=== PATIENT | female | born 1930 | race Asian ===

== ENCOUNTER 2019-01-15 10:54 | Inpatient (IN) | payer MEDICARE, BC ==
[~2019-01-15] VITALS: Ht 162.6 cm; Wt 52.2 kg
[~2019-01-15 10:54] MED LIST: CYCLOBENZAPRINE10 MG ORAL; NORCO 5-325 TA1 EACH ORAL
[2019-01-15] MEDS ORDERED: NKM (11:11)
[2019-01-15 11:46] VITALS: BP 167/63
--- NOTE | 2019-01-15 11:50 | Diagnostic Imaging Report ---
Indication: Shortness of breath Technique: XRAY Chest 1v Comparison: 04/23/2014 Findings: Stable cardiomegaly. Mediastinal contours are sharp. Atherosclerotic calcifications again noted in the aorta. Subtle nonspecific increased interstitial markings again noted at the bases, chronic. No focal airspace consolidation, pleural effusion or pneumothorax. Bones are demineralized. There are degenerative changes of the spine. There is a healed right clavicle fracture. Impression: No radiographic evidence of acute cardiopulmonary disease. Chronic findings as detailed above.
--- NOTE | 2019-01-15 12:08 | Diagnostic Imaging Report ---
Indication: Dizziness Technique: Continuous helical CT scanning of the head was performed utilizing automated exposure control without intravenous contrast material. Axial and coronal reconstructions were obtained. Comparison: None CT dose: Total DLP 1362.01 mGycm; CTDI vol 70.38 mGy Findings: There is no acute intracranial hemorrhage, mass effect or cortical edema. There is no shift of the midline structures. Apparent punctate focus of low-attenuation in the left cerebellum (series 3 image #7) most likely represents artifact from adjacent dense bone. The ventricles, cisterns and sulci are prominent consistent with atrophy. Periventricular hypoattenuation is seen, a nonspecific finding. Visualized mastoid air cells and paranasal sinuses are unremarkable. No skull fracture. IMPRESSION: No evidence of acute intracranial hemorrhage, mass effect or shift of midline structures. Apparent small focus of low-attenuation in the left cerebellum (image #7) may be artifactual and related to streak/volume averaging effect. If there is concern for ischemia then recommend further evaluation with MRI. Atrophy and nonspecific periventricular hypoattenuation suggestive of chronic ischemic microvascular changes. The CT scanner at [facility] is accredited by the [employer] and the scans are performed using protocols designed to limit radiation exposure to as low as reasonably achievable to attain images of sufficient resolution adequate for diagnostic evaluation.
[2019-01-15 12:28] LABS: HEMATOCRIT 42.7 % (37.0-47.0); HEMOGLOBIN 13.9 G/DL (12.0-16.0); MEAN CORPUSCULAR VOLUME 95 FL (80-99); PLATELET COUNT 206 K/UL (150-450); RED CELL DISTRIBUTION WIDTH 12.5 % (11.6-14.8); WHITE BLOOD COUNT 3.3 K/UL (4.8-10.8)
[2019-01-15 12:29] LABS: APPEARANCE,URINE CLEAR; BILIRUBIN, URINE NEGATIVE (NEGATIVE); COLOR,URINE PALE YELLOW; GLUCOSE, URINE (UA) NEGATIVE (NEGATIVE); KETONES,URINE NEGATIVE (NEGATIVE); LEUKOCYTE ESTERASE ,URINE 2+ (NEGATIVE); NITRITE,URINE NEGATIVE (NEGATIVE); PH,URINE 7 (4.5-8.0); PROTEIN,URINE NEGATIVE (NEGATIVE); UROBILINOGEN,URINE NORMAL MG/DL (0.0-1.0)
[2019-01-15 12:37] LABS: ANION GAP 8 mmol/L (5-15); BLOOD UREA NITROGEN 9 mg/dL (7-18); CALCIUM 9.5 MG/DL (8.5-10.1); CARBON DIOXIDE 32 MMOL/L (21-32); CHLORIDE 104 MMOL/L (98-107); CREATININE 0.5 MG/DL (0.55-1.30); POTASSIUM 4.2 MMOL/L (3.5-5.1); SODIUM 143 MMOL/L (136-145)
[2019-01-15 12:50] LABS: ALANINE AMINOTRANSFERASE 19 U/L (12-78); ALBUMIN 3.9 G/DL (3.4-5.0); ALBUMIN/GLOBULIN RATIO 1.1 (1.0-2.7); ALKALINE PHOSPHATASE 100 U/L (46-116); ASPARTATE AMINO TRANSFERASE 22 U/L (15-37); BILIRUBIN,TOTAL 0.8 MG/DL (0.2-1.0); CKMB 1.3 NG/ML (0.0-3.6); CREATINE KINASE 101 U/L (26-308)
--- NOTE | 2019-01-15 14:17 | Diagnostic Imaging Report ---
Indication: Vertigo, dizziness Technique: MRI the brain performed utilizing T1 sagittal, T2 axial, T1 FLAIR axial, T2 FLAIR axial, T2*GRE and diffusion axial images without gadolinium. Comparison: Concurrent noncontrast CT of the head Findings: No diffusion abnormalities are seen on diffusion weighted imaging. No signal dropout is noted on gradient echo. The sulci, ventricles and cisterns are prominent consistent with atrophy. Periventricular and supratentorial white matter T2 hyperintensity are seen without mass effect. There is no shift of midline structures. No significant extra-axial collections of fluid or blood are demonstrated. Expected signal flow voids are seen of the vessels of the skull base. Visualized mastoid air cells and paranasal sinuses are unremarkable. No focal bony calvarium or soft tissue lesions are seen. IMPRESSION: No acute intracranial abnormality identified. Specifically no evidence of acute infarct. Atrophy and chronic/senescent changes.
--- NOTE | 2019-01-15 14:55 | Emergency Room Report ---
History of Present Illness General Chief Complaint: Hypertension Source: Patient Present Illness HPI The patient states that she has had intermittent episodes of lightheadedness for the past week and a half. She states the first episode happened about 10 days ago. She states that she is going on the stairs and she fell unstable and grabbed onto the railing. She did not fall. She states that over the past few days she has felt more "dizzy." She is unable to articulate exactly what dizzy means. She doesn't answer about spinning or specifically lightheadedness. She is focused on the word dizzy. She denies chest pain or short of breath. She denies abdominal pain. She denies recent illness. She denies cough or congestion. She denies sore throat or neck pain. She denies headache. She states that she took her blood pressure several times a day the past couple days and noted that it was elevated. She states she's never had an elevated blood pressure in the past. She has no other complaints. Allergies: Coded Allergies: NO KNOWN DRUG ALLERGIES (Unverified Allergy, Unknown, 01/15/19) Patient History Past Medical History: none, see triage record Social History: Denies: smoking, alcohol use, drug use Last Menstrual Period: MENOPAUSE Reviewed Nursing Documentation: PMH: Agreed; PSxH: Agreed Nursing Documentation-PMH Past Medical History: No Stated History Review of Systems All Other Systems: negative except mentioned in HPI Physical Exam Vital Signs Date Time Temp Pulse Resp B/P (MAP) Pulse Ox O2 Delivery O2 Flow Rate FiO2 01/15/19 11:07 98.4 58 16 146/70 94 Room Air Sp02 EP Interpretation: reviewed, normal General Appearance: no apparent distress, alert, GCS 15, non-toxic Head: normocephalic, atraumatic Eyes: bilateral eye normal inspection, bilateral eye PERRL ENT: hearing grossly normal, normal pharynx, no angioedema, normal voice Neck: full range of motion, supple/symm/no masses Respiratory: chest non-tender, lungs clear, normal breath sounds, no respiratory distress, no retraction, no accessory muscle use, speaking full sentences Cardiovascular #1: regular rate, rhythm, no edema Gastrointestinal: normal bowel sounds, non tender, soft, non-distended, no guarding, no rebound Rectal: deferred Musculoskeletal: back normal, gait/station normal, normal range of motion, non- tender Neurologic: alert, oriented x3, responsive, motor strength/tone normal, sensory intact, speech normal Psychiatric: judgement/insight normal, memory normal, mood/affect normal, no suicidal/homicidal ideation Skin: normal color, no rash, warm/dry, well hydrated Medical Decision Making Diagnostic Impression: Primary Impression: Hypertension ER Course This patient's workup was negative. The patient did have elevated blood pressures during her ED stay here. She is very hesitant about taking any blood pressure medications because of her history of low blood pressure. I felt I should start a very low dose of low blood pressure medication for her since her blood pressures have been significantly elevated. She is also educated on diet modification. The patient will like to go home and does not want admission to the hospital. I did not identify any medical condition that would require her admission. She has been under a lot of stress secondary to her dying about one month ago. The patient will monitor her blood pressure and see her primary care physician as soon as possible. I did obtain a CT of her head and an MRI of her brain and there was no abnormalities. Overall, the patient's evaluation was benign. The patient is given close return precautions and follow -up instructions. Laboratory Tests Test 01/15/19 12:05 White Blood Count 3.3 K/UL (4.8-10.8) L Red Blood Count 4.50 M/UL (4.20-5.40) Hemoglobin 13.9 G/DL (12.0-16.0) Hematocrit 42.7 % (37.0-47.0) Mean Corpuscular Volume 95 FL (80-99) Mean Corpuscular Hemoglobin 31.0 PG (27.0-31.0) Mean Corpuscular Hemoglobin Concent 32.7 G/DL (32.0-36.0) Red Cell Distribution Width 12.5 % (11.6-14.8) Platelet Count 206 K/UL (150-450) Mean Platelet Volume 7.6 FL (6.5-10.1) Neutrophils (%) (Auto) % (45.0-75.0) Lymphocytes (%) (Auto) % (20.0-45.0) Monocytes (%) (Auto) % (1.0-10.0) Eosinophils (%) (Auto) % (0.0-3.0) Basophils (%) (Auto) % (0.0-2.0) Differential Total Cells Counted 100 Neutrophils % (Manual) 53 % (45-75) Lymphocytes % (Manual) 37 % (20-45) Monocytes % (Manual) 7 % (1-10) Eosinophils % (Manual) 3 % (0-3) Basophils % (Manual) 0 % (0-2) Band Neutrophils 0 % (0-8) Platelet Estimate Adequate Platelet Morphology Normal Prothrombin Time 10.5 SEC (9.30-11.50) Prothrombin Time INR 1.0 (0.9-1.1) PTT 28 SEC (23-33) Urine Color Pale yellow Urine Appearance Clear Urine pH 7 (4.5-8.0) Urine Specific [place] 1.010 (1.005-1.035) Urine Protein Negative (NEGATIVE) Urine Glucose (UA) Negative (NEGATIVE) Urine Ketones Negative (NEGATIVE) Urine Blood Negative (NEGATIVE) Urine Nitrite Negative (NEGATIVE) Urine Bilirubin Negative (NEGATIVE) Urine Urobilinogen Normal MG/DL (0.0-1.0) Urine Leukocyte Esterase 2+ (NEGATIVE) H Urine RBC 0-2 /HPF (0 - 2) Urine WBC 0-2 /HPF (0 - 2) Urine Squamous Epithelial Cells Occasional /LPF Urine Bacteria Occasional /HPF (NONE) Sodium Level 143 MMOL/L (136-145) Potassium Level 4.2 MMOL/L (3.5-5.1) Chloride Level 104 MMOL/L (98-107) Carbon Dioxide Level 32 MMOL/L (21-32) Anion Gap 8 mmol/L (5-15) Blood Urea Nitrogen 9 mg/dL (7-18) Creatinine 0.5 MG/DL (0.55-1.30) L Estimate Glomerular Filtration Rate mL/min (>60) Glucose Level 95 MG/DL (74-106) Calcium Level 9.5 MG/DL (8.5-10.1) Total Bilirubin 0.8 MG/DL (0.2-1.0) Aspartate Amino Transferase (AST) 22 U/L (15-37) Alanine Aminotransferase (ALT) 19 U/L (12-78) Alkaline Phosphatase 100 U/L (46-116) Total Creatine Kinase 101 U/L (26-308) Creatine Kinase MB 1.3 NG/ML (0.0-3.6) Creatine Kinase MB Relative Index 1.2 Troponin I 0.004 ng/mL (0.000-0.056) Total Protein 7.5 G/DL (6.4-8.2) Albumin 3.9 G/DL (3.4-5.0) Globulin 3.6 g/dL Albumin/Globulin Ratio 1.1 (1.0-2.7) EKG Diagnostic Results Rate: bradycardiac Rhythm: other - S.bradycardia ST Segments: no acute changes Rhythm Strip Diag. Results EP Interpretation: yes Rate: 50's Rhythm: no PVC's, no ectopy, other - S.bradycardia Chest X-Ray Diagnostic Results Chest X-Ray Diagnostic Results : Chest X-Ray Ordered: Yes # of Views/Limited/Complete: 1 View Indication: Other Interpretation: no consolidation, no effusion, no pneumothorax, no acute cardiopulmonary disease Impression: No acute disease Electronically Signed by: Malu Whyte DO CT/MRI/US Diagnostic Results CT/MRI/US Diagnostic Results : Imaging Test Ordered: CT head, MRI Brain Impression CT head: No evidence of acute intracranial hemorrhage, mass effect or shift of midline structures. Apparent small focus of low-attenuation in the left cerebellum (image #7) may be artifactual and related to streak/volume averaging effect. If there is concern for ischemia then recommend further evaluation with MRI. Atrophy and nonspecific periventricular hypoattenuation suggestive of chronic ischemic microvascular changes. MRI Brain: No acute intracranial abnormality identified. Specifically no evidence of acute infarct. Atrophy and chronic/senescent changes. Last Vital Signs Date Time Temp Pulse Resp B/P (MAP) Pulse Ox O2 Delivery O2 Flow Rate FiO2 01/15/19 11:46 98.4 54 14 167/63 97 Room Air Status: improved Disposition: HOME, SELF-CARE Condition: Improved Referrals: NON PHYSICIAN (PCP) Malu Whyte DO Jan 15, 2019 14:55
[2019-01-15] MEDS ORDERED: LISINOPRIL5 MG ORAL (15:01)
[2019-01-15 15:53] VITALS: BP 170/68
[2019-01-15] MEDS ORDERED: Miralax 17gm pkt ORAL PRN (16:15)
[2019-01-15] MEDS ORDERED: Nitroglycerin Subl 0.4mg tab SL PRN (16:15)
[2019-01-15] MEDS ORDERED: Albuterol/Ipratropium 3ml neb HHN PRN (16:15)
[2019-01-15] MEDS ORDERED: LORazepam Inj 2mg/ml 1ml IV PRN (16:15)
[2019-01-15] MEDS ORDERED: Morphine Sulfate 2mg/ml Inj(IV/IM USE ONLY) IVP PRN (16:15)
[2019-01-15] MEDS ORDERED: Mylanta II UD 30ml ORAL PRN (16:15)
[2019-01-15 18:27] VITALS: BP 118/72
[2019-01-15 19:02] VITALS: BP 160/81
[2019-01-15 20:00] VITALS: BP 139/65
[2019-01-15] MEDS: Heparin 5000 units/ml inj SUBQ SCH (20:23)
[2019-01-16] VITALS: BP 157/75
[2019-01-16 04:00] VITALS: BP 135/86
[2019-01-16 06:29] LABS: BASOPHILS % (AUTO) 0.8 % (0.0-2.0); HEMATOCRIT 42.5 % (37.0-47.0); LYMPHOCYTES % (AUTO) 21.2 % (20.0-45.0); MEAN CORPUSCULAR VOLUME 95 FL (80-99); MONOCYTES % (AUTO) 4.6 % (1.0-10.0); NEUTROPHILS % (AUTO) 71.4 % (45.0-75.0); PLATELET COUNT 203 K/UL (150-450); RED CELL DISTRIBUTION WIDTH 12.7 % (11.6-14.8)
[2019-01-16 06:48] LABS: ALANINE AMINOTRANSFERASE 18 U/L (12-78); ALBUMIN 3.7 G/DL (3.4-5.0); ALKALINE PHOSPHATASE 99 U/L (46-116); ANION GAP 8 mmol/L (5-15); ASPARTATE AMINO TRANSFERASE 20 U/L (15-37); BILIRUBIN,TOTAL 0.9 MG/DL (0.2-1.0); BLOOD UREA NITROGEN 16 mg/dL (7-18); CARBON DIOXIDE 29 MMOL/L (21-32); CHLORIDE 104 MMOL/L (98-107); CHOLESTEROL 238 MG/DL (< 200); CREATININE 0.6 MG/DL (0.55-1.30); HDL CHOLESTEROL 89 MG/DL (40-60); POTASSIUM 4.2 MMOL/L (3.5-5.1); SODIUM 140 MMOL/L (136-145); TRIGLYCERIDES 86 MG/DL (30-150)
[2019-01-16 08:19] VITALS: BP 135/71
[2019-01-16] MEDS: Heparin 5000 units/ml inj SUBQ SCH (09:42)
--- NOTE | 2019-01-16 11:05 | Consultation ---
History of Present Illness General Chief Complaint: Hypertension Present Illness Allergies: Coded Allergies: NO KNOWN DRUG ALLERGIES (Unverified Allergy, Unknown, 01/15/19) Medication History Scheduled Cyclobenzaprine Hcl* (Flexeril*), 10 MG ORAL BID Lisinopril (Lisinopril*), 5 MG ORAL DAILY No Known Medications* (NKM - No Known Medications*), 0 ., (Reported) Scheduled PRN Hydrocodone Bit/Acetaminophen 5-325* ([place] 5-325*), 1 TAB ORAL Q6H PRN for For Pain Patient History Healthcare decision maker N Resuscitation status Full Code Advanced Directive on File No Physical Exam Last 24 Hour Vital Signs Date Time Temp Pulse Resp B/P (MAP) Pulse Ox O2 Delivery O2 Flow Rate FiO2 01/16/19 08:19 97.6 92 18 135/71 (92) 95 01/16/19 07:12 89 18 Room Air 21 01/16/19 04:00 98.8 69 18 135/86 (102) 96 01/16/19 04:00 68 01/16/19 00:00 98.0 59 18 157/75 (102) 96 01/16/19 00:00 59 01/15/19 20:00 80 01/15/19 20:00 97.8 63 16 139/65 (89) 94 01/15/19 19:47 Room Air 01/15/19 19:10 98.4 59 18 118/72 98 Room Air 21 01/15/19 19:07 60 18 Room Air 21 01/15/19 19:02 97.8 61 19 160/81 (107) 98 01/15/19 18:27 59 19 118/72 98 Room Air 01/15/19 15:53 98.4 50 12 170/68 100 Room Air 01/15/19 11:46 98.4 54 14 167/63 97 Room Air 01/15/19 11:45 58 16 Room Air 01/15/19 11:07 98.4 58 16 146/70 94 Room Air Intake and Output 01/15/19 01/16/19 19:00 07:00 # Voids 1 2 Laboratory Tests Test 01/15/19 12:05 01/16/19 05:30 White Blood Count 3.3 K/UL (4.8-10.8) L 5.0 K/UL (4.8-10.8) # Red Blood Count 4.50 M/UL (4.20-5.40) 4.50 M/UL (4.20-5.40) Hemoglobin 13.9 G/DL (12.0-16.0) 14.0 G/DL (12.0-16.0) Hematocrit 42.7 % (37.0-47.0) 42.5 % (37.0-47.0) Mean Corpuscular Volume 95 FL (80-99) 95 FL (80-99) Mean Corpuscular Hemoglobin 31.0 PG (27.0-31.0) 31.1 PG (27.0-31.0) H Mean Corpuscular Hemoglobin Concent 32.7 G/DL (32.0-36.0) 32.9 G/DL (32.0-36.0) Red Cell Distribution Width 12.5 % (11.6-14.8) 12.7 % (11.6-14.8) Platelet Count 206 K/UL (150-450) 203 K/UL (150-450) Mean Platelet Volume 7.6 FL (6.5-10.1) 6.6 FL (6.5-10.1) Neutrophils (%) (Auto) % (45.0-75.0) 71.4 % (45.0-75.0) Lymphocytes (%) (Auto) % (20.0-45.0) 21.2 % (20.0-45.0) Monocytes (%) (Auto) % (1.0-10.0) 4.6 % (1.0-10.0) Eosinophils (%) (Auto) % (0.0-3.0) 2.0 % (0.0-3.0) Basophils (%) (Auto) % (0.0-2.0) 0.8 % (0.0-2.0) Differential Total Cells Counted 100 Neutrophils % (Manual) 53 % (45-75) Lymphocytes % (Manual) 37 % (20-45) Monocytes % (Manual) 7 % (1-10) Eosinophils % (Manual) 3 % (0-3) Basophils % (Manual) 0 % (0-2) Band Neutrophils 0 % (0-8) Platelet Estimate Adequate Platelet Morphology Normal Prothrombin Time 10.5 SEC (9.30-11.50) 10.7 SEC (9.30-11.50) Prothromb Time International Ratio 1.0 (0.9-1.1) 1.0 (0.9-1.1) Activated Partial Thromboplast Time 28 SEC (23-33) 30 SEC (23-33) Urine Color Pale yellow Urine Appearance Clear Urine pH 7 (4.5-8.0) Urine Specific [place] 1.010 (1.005-1.035) Urine Protein Negative (NEGATIVE) Urine Glucose (UA) Negative (NEGATIVE) Urine Ketones Negative (NEGATIVE) Urine Blood Negative (NEGATIVE) Urine Nitrite Negative (NEGATIVE) Urine Bilirubin Negative (NEGATIVE) Urine Urobilinogen Normal MG/DL (0.0-1.0) Urine Leukocyte Esterase 2+ (NEGATIVE) H Urine RBC 0-2 /HPF (0 - 2) Urine WBC 0-2 /HPF (0 - 2) Urine Squamous Epithelial Cells Occasional /LPF Urine Bacteria Occasional /HPF (NONE) Sodium Level 143 MMOL/L (136-145) 140 MMOL/L (136-145) Potassium Level 4.2 MMOL/L (3.5-5.1) 4.2 MMOL/L (3.5-5.1) Chloride Level 104 MMOL/L (98-107) 104 MMOL/L (98-107) Carbon Dioxide Level 32 MMOL/L (21-32) 29 MMOL/L (21-32) Anion Gap 8 mmol/L (5-15) 8 mmol/L (5-15) Blood Urea Nitrogen 9 mg/dL (7-18) 16 mg/dL (7-18) Creatinine 0.5 MG/DL (0.55-1.30) L 0.6 MG/DL (0.55-1.30) Estimat Glomerular Filtration Rate mL/min (>60) mL/min (>60) Glucose Level 95 MG/DL (74-106) 93 MG/DL (74-106) Calcium Level 9.5 MG/DL (8.5-10.1) 9.0 MG/DL (8.5-10.1) Total Bilirubin 0.8 MG/DL (0.2-1.0) 0.9 MG/DL (0.2-1.0) Aspartate Amino Transf (AST/SGOT) 22 U/L (15-37) 20 U/L (15-37) Alanine Aminotransferase (ALT/SGPT) 19 U/L (12-78) 18 U/L (12-78) Alkaline Phosphatase 100 U/L (46-116) 99 U/L (46-116) Total Creatine Kinase 101 U/L (26-308) Creatine Kinase MB 1.3 NG/ML (0.0-3.6) Creatine Kinase MB Relative Index 1.2 Troponin I 0.004 ng/mL (0.000-0.056) Total Protein 7.5 G/DL (6.4-8.2) 7.4 G/DL (6.4-8.2) Albumin 3.9 G/DL (3.4-5.0) 3.7 G/DL (3.4-5.0) Globulin 3.6 g/dL 3.7 g/dL Albumin/Globulin Ratio 1.1 (1.0-2.7) 1.0 (1.0-2.7) Triglycerides Level 86 MG/DL (30-150) Cholesterol Level 238 MG/DL (< 200) H LDL Cholesterol 133 mg/dL (<100) H HDL Cholesterol 89 MG/DL (40-60) H Cholesterol/HDL Ratio 2.7 (3.3-4.4) L Thyroid Stimulating Hormone (TSH) 3.847 uiU/mL (0.358-3.740) Height (Feet): 5 Height (Inches): 4.00 Weight (Pounds): 115 Medications Current Medications Medications (Trade) Dose Ordered Sig/Nuris Route PRN Reason Start Time Stop Time Status Last Admin Dose Admin Acetaminophen (Tylenol) 650 mg Q4H PRN ORAL fever 01/15/19 16:15 02/14/19 16:14 Al Hydroxide/Mg Hydroxide (Mylanta II) 30 ml Q6H PRN ORAL dyspepsia 01/15/19 16:15 02/14/19 16:14 Albuterol/ Ipratropium (Albuterol/ Ipratropium) 3 ml Q4H PRN HHN Shortness of Breath 01/15/19 16:15 01/20/19 16:14 Clonidine HCl (Catapres Tab) 0.1 mg Q4H PRN ORAL For High Blood Pressure 01/15/19 16:15 02/14/19 16:14 Dextrose (Dextrose 50%) 25 ml Q30M PRN IV Hypoglycemia 01/15/19 16:15 02/14/19 16:14 Dextrose (Dextrose 50%) 50 ml Q30M PRN IV Hypoglycemia 01/15/19 16:15 02/14/19 16:14 Heparin Sodium (Porcine) (Heparin 5000 units/ml) 5,000 units EVERY 12 HOURS SUBQ 01/15/19 21:00 02/14/19 20:59 01/16/19 09:42 Lorazepam (Ativan 2mg/ml 1ml) 0.5 mg Q4H PRN IV For Anxiety 01/15/19 16:15 01/22/19 16:14 Morphine Sulfate (Morphine Sulfate) 1 mg Q4H PRN IVP For Pain 7-10 01/15/19 16:15 01/22/19 16:14 Nitroglycerin (Ntg) 0.4 mg Q5M X 3 DOSES PRN SL Prn Chest Pain 01/15/19 16:15 02/14/19 16:14 Ondansetron HCl (Zofran) 4 mg Q6H PRN IVP Nausea & Vomiting 01/15/19 16:15 02/14/19 16:14 Polyethylene Glycol (Miralax) 17 gm HSPRN PRN ORAL Constipation 01/15/19 16:15 02/14/19 16:14 Temazepam (Restoril) 15 mg HSPRN PRN ORAL Insomnia 01/15/19 16:15 01/22/19 16:14 Erin Paz N.P. Jan 16, 2019 11:05
--- NOTE | 2019-01-16 11:26 | Consultation ---
History of Present Illness General Date patient seen: Jan 16, 2019 Chief Complaint: Hypertension Present Illness HPI 88 year old female with hx of HTN on Lisinopril 5 mg daily, present to ER with her son with cc of intermittent episodes of lightheadedness for the past week. She states the first episode happened about 10 days ago. She states that she is going on the stairs and she fell unstable and grabbed onto the railing. She denies chest pain or short of breath. She denies abdominal pain. She denies headache. She states that she took her blood pressure several times a day the past couple days and noted that it was elevated. Her BP has been elevated as well. She is admitted to telemetry for further work up. Allergies: Coded Allergies: NO KNOWN DRUG ALLERGIES (Unverified Allergy, Unknown, 01/15/19) Medication History Scheduled Cyclobenzaprine Hcl* (Flexeril*), 10 MG ORAL BID Lisinopril (Lisinopril*), 5 MG ORAL DAILY No Known Medications* (NKM - No Known Medications*), 0 ., (Reported) Scheduled PRN Hydrocodone Bit/Acetaminophen 5-325* ([place] 5-325*), 1 TAB ORAL Q6H PRN for For Pain Patient History Healthcare decision maker N Resuscitation status Full Code Advanced Directive on File No Past Medical/Surgical History Past Medical/Surgical History: (1) Hypertension Review of Systems All Other Systems: negative except mentioned in HPI Physical Exam General Appearance: WD/WN, no apparent distress Lines, tubes and drains: peripheral HEENT: normocephalic, atraumatic, anicteric Neck: non-tender, normal alignment, supple Respiratory/Chest: chest wall non-tender, lungs clear, normal breath sounds, decreased breath sounds Breasts: no masses Cardiovascular/Chest: normal peripheral pulses Abdomen: normal bowel sounds, non tender Genitourinary/Rectal: normal genital exam Extremities: normal range of motion Neurologic: aeronautical engineer II-XII grossly normal Lymphatic: anterior cervical Last 24 Hour Vital Signs Date Time Temp Pulse Resp B/P (MAP) Pulse Ox O2 Delivery O2 Flow Rate FiO2 01/16/19 08:19 97.6 92 18 135/71 (92) 95 01/16/19 07:12 89 18 Room Air 21 01/16/19 04:00 98.8 69 18 135/86 (102) 96 01/16/19 04:00 68 01/16/19 00:00 98.0 59 18 157/75 (102) 96 01/16/19 00:00 59 01/15/19 20:00 80 01/15/19 20:00 97.8 63 16 139/65 (89) 94 01/15/19 19:47 Room Air 01/15/19 19:10 98.4 59 18 118/72 98 Room Air 21 01/15/19 19:07 60 18 Room Air 21 01/15/19 19:02 97.8 61 19 160/81 (107) 98 01/15/19 18:27 59 19 118/72 98 Room Air 01/15/19 15:53 98.4 50 12 170/68 100 Room Air 01/15/19 11:46 98.4 54 14 167/63 97 Room Air 01/15/19 11:45 58 16 Room Air Intake and Output 01/15/19 01/16/19 19:00 07:00 # Voids 1 2 Laboratory Tests Test 01/15/19 12:05 01/16/19 05:30 White Blood Count 3.3 K/UL (4.8-10.8) L 5.0 K/UL (4.8-10.8) # Red Blood Count 4.50 M/UL (4.20-5.40) 4.50 M/UL (4.20-5.40) Hemoglobin 13.9 G/DL (12.0-16.0) 14.0 G/DL (12.0-16.0) Hematocrit 42.7 % (37.0-47.0) 42.5 % (37.0-47.0) Mean Corpuscular Volume 95 FL (80-99) 95 FL (80-99) Mean Corpuscular Hemoglobin 31.0 PG (27.0-31.0) 31.1 PG (27.0-31.0) H Mean Corpuscular Hemoglobin Concent 32.7 G/DL (32.0-36.0) 32.9 G/DL (32.0-36.0) Red Cell Distribution Width 12.5 % (11.6-14.8) 12.7 % (11.6-14.8) Platelet Count 206 K/UL (150-450) 203 K/UL (150-450) Mean Platelet Volume 7.6 FL (6.5-10.1) 6.6 FL (6.5-10.1) Neutrophils (%) (Auto) % (45.0-75.0) 71.4 % (45.0-75.0) Lymphocytes (%) (Auto) % (20.0-45.0) 21.2 % (20.0-45.0) Monocytes (%) (Auto) % (1.0-10.0) 4.6 % (1.0-10.0) Eosinophils (%) (Auto) % (0.0-3.0) 2.0 % (0.0-3.0) Basophils (%) (Auto) % (0.0-2.0) 0.8 % (0.0-2.0) Differential Total Cells Counted 100 Neutrophils % (Manual) 53 % (45-75) Lymphocytes % (Manual) 37 % (20-45) Monocytes % (Manual) 7 % (1-10) Eosinophils % (Manual) 3 % (0-3) Basophils % (Manual) 0 % (0-2) Band Neutrophils 0 % (0-8) Platelet Estimate Adequate Platelet Morphology Normal Prothrombin Time 10.5 SEC (9.30-11.50) 10.7 SEC (9.30-11.50) Prothromb Time International Ratio 1.0 (0.9-1.1) 1.0 (0.9-1.1) Activated Partial Thromboplast Time 28 SEC (23-33) 30 SEC (23-33) Urine Color Pale yellow Urine Appearance Clear Urine pH 7 (4.5-8.0) Urine Specific [place] 1.010 (1.005-1.035) Urine Protein Negative (NEGATIVE) Urine Glucose (UA) Negative (NEGATIVE) Urine Ketones Negative (NEGATIVE) Urine Blood Negative (NEGATIVE) Urine Nitrite Negative (NEGATIVE) Urine Bilirubin Negative (NEGATIVE) Urine Urobilinogen Normal MG/DL (0.0-1.0) Urine Leukocyte Esterase 2+ (NEGATIVE) H Urine RBC 0-2 /HPF (0 - 2) Urine WBC 0-2 /HPF (0 - 2) Urine Squamous Epithelial Cells Occasional /LPF Urine Bacteria Occasional /HPF (NONE) Sodium Level 143 MMOL/L (136-145) 140 MMOL/L (136-145) Potassium Level 4.2 MMOL/L (3.5-5.1) 4.2 MMOL/L (3.5-5.1) Chloride Level 104 MMOL/L (98-107) 104 MMOL/L (98-107) Carbon Dioxide Level 32 MMOL/L (21-32) 29 MMOL/L (21-32) Anion Gap 8 mmol/L (5-15) 8 mmol/L (5-15) Blood Urea Nitrogen 9 mg/dL (7-18) 16 mg/dL (7-18) Creatinine 0.5 MG/DL (0.55-1.30) L 0.6 MG/DL (0.55-1.30) Estimat Glomerular Filtration Rate mL/min (>60) mL/min (>60) Glucose Level 95 MG/DL (74-106) 93 MG/DL (74-106) Calcium Level 9.5 MG/DL (8.5-10.1) 9.0 MG/DL (8.5-10.1) Total Bilirubin 0.8 MG/DL (0.2-1.0) 0.9 MG/DL (0.2-1.0) Aspartate Amino Transf (AST/SGOT) 22 U/L (15-37) 20 U/L (15-37) Alanine Aminotransferase (ALT/SGPT) 19 U/L (12-78) 18 U/L (12-78) Alkaline Phosphatase 100 U/L (46-116) 99 U/L (46-116) Total Creatine Kinase 101 U/L (26-308) Creatine Kinase MB 1.3 NG/ML (0.0-3.6) Creatine Kinase MB Relative Index 1.2 Troponin I 0.004 ng/mL (0.000-0.056) Total Protein 7.5 G/DL (6.4-8.2) 7.4 G/DL (6.4-8.2) Albumin 3.9 G/DL (3.4-5.0) 3.7 G/DL (3.4-5.0) Globulin 3.6 g/dL 3.7 g/dL Albumin/Globulin Ratio 1.1 (1.0-2.7) 1.0 (1.0-2.7) Triglycerides Level 86 MG/DL (30-150) Cholesterol Level 238 MG/DL (< 200) H LDL Cholesterol 133 mg/dL (<100) H HDL Cholesterol 89 MG/DL (40-60) H Cholesterol/HDL Ratio 2.7 (3.3-4.4) L Thyroid Stimulating Hormone (TSH) 3.847 uiU/mL (0.358-3.740) Free Thyroxine Pending Free Triiodothyronine Pending Height (Feet): 5 Height (Inches): 4.00 Weight (Pounds): 115 Medications Current Medications Medications (Trade) Dose Ordered Sig/Nuris Route PRN Reason Start Time Stop Time Status Last Admin Dose Admin Acetaminophen (Tylenol) 650 mg Q4H PRN ORAL fever 01/15/19 16:15 02/14/19 16:14 Al Hydroxide/Mg Hydroxide (Mylanta II) 30 ml Q6H PRN ORAL dyspepsia 01/15/19 16:15 02/14/19 16:14 Albuterol/ Ipratropium (Albuterol/ Ipratropium) 3 ml Q4H PRN HHN Shortness of Breath 01/15/19 16:15 01/20/19 16:14 Clonidine HCl (Catapres Tab) 0.1 mg Q4H PRN ORAL For High Blood Pressure 01/15/19 16:15 02/14/19 16:14 Dextrose (Dextrose 50%) 25 ml Q30M PRN IV Hypoglycemia 01/15/19 16:15 02/14/19 16:14 Dextrose (Dextrose 50%) 50 ml Q30M PRN IV Hypoglycemia 01/15/19 16:15 02/14/19 16:14 Heparin Sodium (Porcine) (Heparin 5000 units/ml) 5,000 units EVERY 12 HOURS SUBQ 01/15/19 21:00 02/14/19 20:59 01/16/19 09:42 Lorazepam (Ativan 2mg/ml 1ml) 0.5 mg Q4H PRN IV For Anxiety 01/15/19 16:15 01/22/19 16:14 Morphine Sulfate (Morphine Sulfate) 1 mg Q4H PRN IVP For Pain 7-10 01/15/19 16:15 01/22/19 16:14 Nitroglycerin (Ntg) 0.4 mg Q5M X 3 DOSES PRN SL Prn Chest Pain 01/15/19 16:15 02/14/19 16:14 Ondansetron HCl (Zofran) 4 mg Q6H PRN IVP Nausea & Vomiting 01/15/19 16:15 02/14/19 16:14 Polyethylene Glycol (Miralax) 17 gm HSPRN PRN ORAL Constipation 01/15/19 16:15 02/14/19 16:14 Temazepam (Restoril) 15 mg HSPRN PRN ORAL Insomnia 01/15/19 16:15 01/22/19 16:14 Assessment/Plan Problem List: (1) Acute encephalopathy ICD Codes: G93.40 - Encephalopathy, unspecified SNOMED: 59157745, 506330089 (2) Uncontrolled hypertension ICD Codes: I10 - Essential (primary) hypertension SNOMED: 49061375, 67815256 (3) Dizziness ICD Codes: R42 - Dizziness and giddiness SNOMED: 686802339, [id number] Diagnosis [place] I: telemetry monitoring serial ekg echocardiogram monitor BP neuro f/u Toño Carr MD Jan 16, 2019 11:26
[2019-01-16] MEDS ORDERED: Lisinopril 10mg tab ORAL SCH (11:30)
[2019-01-16 12:09] VITALS: BP 110/65
--- NOTE | 2019-01-16 12:54 | Cardiology Report ---
APPROVED REPORT EXAM: Two-dimensional and M-mode echocardiogram with Doppler and color Doppler. INDICATION Bradycardia M-Mode DIMENSIONS IVSd1.0 (0.7-1.1cm)Left Atrium (MM)2.2 (1.6-4.0cm) LVDd3.8 (3.5-5.6cm)Aortic Root3.3 (2.0-3.7cm) PWd0.9 (0.7-1.1cm)Aortic Cusp Exc.1.9 (1.5-2.0cm) IVSs1.1 cm LVDs2.1 (2.5-4.0cm) PWs1.6 cm Normal left ventricular chamber size, systolic function and wall motion. Left ventricular ejection fraction estimated to be 70 %. Mild left ventricular hypertrophy. No evidence of pericardial effusion. All other cardiac chamber sizes are within normal limits. Focal aortic valve sclerosis with adequate cusp excursion. Thickened mitral valve leaflets with normal excursion. Mitral annulus and aortic root calcification. Pulmonic valve not well visualized. Normal tricuspid valve structure. IVC at normal size with physiologic collapse. A color flow and spectral Doppler study was performed and revealed: Mild to moderate aortic regurgitation. Trace mitral regurgitation. Mitral diastolic velocities suggest reduced left ventricular relaxation c/w mild LV diastolic dysfunction (Grade I). Mild tricuspid regurgitation. Tricuspid systolic velocities suggests peak right ventricular systolic pressure of 35 mmHg, consistent with borderline mild pulmonary hypertension.
--- NOTE | 2019-01-16 13:40 | Cardiology Report ---
APPROVED REPORT EKG Measurement Heart [id number] Sinus bradycardia Nonspecific T wave abnormality Abnormal ECG
--- NOTE | 2019-01-16 14:32 | Cardiac Electrophysiology PN ---
Subjective Subjective [id number] Objective Last 24 Hour Vital Signs Date Time Temp Pulse Resp B/P (MAP) Pulse Ox O2 Delivery O2 Flow Rate FiO2 01/16/19 12:11 65 01/16/19 12:09 97.1 74 18 110/65 (80) 95 01/16/19 11:30 135/71 01/16/19 11:28 Room Air 01/16/19 08:19 97.6 92 18 135/71 (92) 95 01/16/19 08:00 107 01/16/19 07:12 89 18 Room Air 21 01/16/19 04:00 98.8 69 18 135/86 (102) 96 01/16/19 04:00 68 01/16/19 00:00 98.0 59 18 157/75 (102) 96 01/16/19 00:00 59 01/15/19 20:00 80 01/15/19 20:00 97.8 63 16 139/65 (89) 94 01/15/19 19:47 Room Air 01/15/19 19:10 98.4 59 18 118/72 98 Room Air 21 01/15/19 19:07 60 18 Room Air 21 01/15/19 19:02 97.8 61 19 160/81 (107) 98 01/15/19 18:27 59 19 118/72 98 Room Air 01/15/19 15:53 98.4 50 12 170/68 100 Room Air Intake and Output 01/15/19 01/16/19 19:00 07:00 # Voids 1 2 Laboratory Tests Test 01/16/19 05:30 White Blood Count 5.0 K/UL (4.8-10.8) # Red Blood Count 4.50 M/UL (4.20-5.40) Hemoglobin 14.0 G/DL (12.0-16.0) Hematocrit 42.5 % (37.0-47.0) Mean Corpuscular Volume 95 FL (80-99) Mean Corpuscular Hemoglobin 31.1 PG (27.0-31.0) H Mean Corpuscular Hemoglobin Concent 32.9 G/DL (32.0-36.0) Red Cell Distribution Width 12.7 % (11.6-14.8) Platelet Count 203 K/UL (150-450) Mean Platelet Volume 6.6 FL (6.5-10.1) Neutrophils (%) (Auto) 71.4 % (45.0-75.0) Lymphocytes (%) (Auto) 21.2 % (20.0-45.0) Monocytes (%) (Auto) 4.6 % (1.0-10.0) Eosinophils (%) (Auto) 2.0 % (0.0-3.0) Basophils (%) (Auto) 0.8 % (0.0-2.0) Prothrombin Time 10.7 SEC (9.30-11.50) Prothromb Time International Ratio 1.0 (0.9-1.1) Activated Partial Thromboplast Time 30 SEC (23-33) Sodium Level 140 MMOL/L (136-145) Potassium Level 4.2 MMOL/L (3.5-5.1) Chloride Level 104 MMOL/L (98-107) Carbon Dioxide Level 29 MMOL/L (21-32) Anion Gap 8 mmol/L (5-15) Blood Urea Nitrogen 16 mg/dL (7-18) Creatinine 0.6 MG/DL (0.55-1.30) Estimat Glomerular Filtration Rate mL/min (>60) Glucose Level 93 MG/DL (74-106) Calcium Level 9.0 MG/DL (8.5-10.1) Total Bilirubin 0.9 MG/DL (0.2-1.0) Aspartate Amino Transf (AST/SGOT) 20 U/L (15-37) Alanine Aminotransferase (ALT/SGPT) 18 U/L (12-78) Alkaline Phosphatase 99 U/L (46-116) Total Protein 7.4 G/DL (6.4-8.2) Albumin 3.7 G/DL (3.4-5.0) Globulin 3.7 g/dL Albumin/Globulin Ratio 1.0 (1.0-2.7) Triglycerides Level 86 MG/DL (30-150) Cholesterol Level 238 MG/DL (< 200) H LDL Cholesterol 133 mg/dL (<100) H HDL Cholesterol 89 MG/DL (40-60) H Cholesterol/HDL Ratio 2.7 (3.3-4.4) L Thyroid Stimulating Hormone (TSH) 3.847 uiU/mL (0.358-3.740) Free Thyroxine 0.99 NG/DL (0.76-1.46) Free Triiodothyronine 2.7 pg/mL (2.3-4.2) Umang Yanez MD Jan 16, 2019 14:32
--- NOTE | 2019-01-16 18:30 | Consultation ---
DATE OF CONSULTATION: 01/16/2019 CARDIOLOGY CONSULTATION CONSULTING PHYSICIAN: Umang Yanez M.D. REFERRING PHYSICIAN: 1. Jay Marquez M.D. 2. Toño Carr M.D. REASON FOR CONSULTATION: Dizziness in the patient with history of hypertension. HISTORY OF PRESENT ILLNESS: The patient is an 88-year-old Portuguese lady with history of hypertension, presented to the emergency room for intermittent episodes of lightheadedness for the last week. The patient never passed out and denies any chest pain or shortness of breath or true syncope. This happened while she was going down the stairs and she fell on the steps and grabbed into the railing. The patient was admitted and did not have any arrhythmia on telemetry. She underwent an echocardiogram that showed normal left ventricular systolic function and no evidence of severe aortic stenosis. The patient was admitted and a Cardiology consultation was obtained for further evaluation and management. REVIEW OF SYSTEMS: Review of systems was negative other than what was mentioned in the history of present illness. PAST MEDICAL HISTORY: Hypertension. MEDICATIONS: Lisinopril 5 mg daily and Flexeril 10 mg b.i.d. SOCIAL HISTORY: She lives at home. Does not smoke or drink alcohol. PHYSICAL EXAMINATION: VITAL SIGNS: Show blood pressure of 110/65, pulse 65, respirations 18, and temperature 97.1. HEAD AND NECK: Showed no JVD or carotid bruits. LUNGS: Clear. CARDIOVASCULAR: Shows regular S1 and S2 with no gallop or murmur. ABDOMEN: Soft. EXTREMITIES: No pitting edema. LABORATORY DATA: INR is 1. Sodium 140, potassium 4.2, BUN of 16, and creatinine of 0.9. Troponin is negative. White count is 5, hemoglobin 14, hematocrit 42.5, and platelet count of 203,000. ASSESSMENT/PLAN: 1. Lightheadedness and dizziness. Etiology is not clear at this time. There was no arrhythmia on telemetry. An echocardiogram showed normal left ventricular systolic function. The patient might have been dehydrated. Her echocardiogram showed normal left ventricular systolic function. 2. Hypertension, stable on lisinopril 10 mg daily. Thank you very much Dr. Marquez and Dr. Carr for allowing me to participate in the care of this patient. Please do not hesitate to contact me for any questions regarding my evaluation. Umang Yanez M.D. DR: EDU JOB#: [id number] CC:
--- NOTE | 2019-01-18 12:07 | Discharge Summary ---
Discharge Summary Discharge Summary _ DATE OF ADMISSION: 01/15/2019 DATE OF DISCHARGE: 01/16/2019 DISCHARGED BY: Dr. Marquez REASON FOR ADMISSION: 88 years old female with past medical history hypertension, presented with intermittent episodes of lightheadedness for the past week and a half. First episode happened about 10 days ago. Patient was going on the stairs and felt unsteady and grabbed onto the railing. She denied any fall or injury. She denied any loss of consciousness or blackout Patient stated that over the past few days she felt worse. She denied recent illness. She denied cough and congestion. She denied chest pain shortness of breath and headache. Patient reported elevated blood pressure for the last couple of days. Upon evaluation in emergency department patient blood pressure noted to be elevated. Patient was bradycardic in 50s WBC 3.3, hemoglobin 13.9, hematocrit 42.7. Neutrophils 53%. Urinalysis revealed no evidence of UTI. Stable electrolytes and renal parameters. Glucose 95 9. Stable LFT. Troponin - 0.004. Albumin 3.9. EKG revealed sinus bradycardia, no acute ischemic changes. Chest x-ray revealed no acute cardiopulmonary pathology. CT of the head demonstrated no evidence of acute intracranial hemorrhage, mass- effect or shift. Patient was subsequently admitted for further management. CONSULTANTS: yard jacker Dr. Murphy neurologist Dr. Mcintyre pulmonary Dr. Carr [place] [facility] [facility] COURSE: Patient admitted to telemetry floor. Supervisor [place] , puppet maker and neurologist seen and evaluated patient. MRI of the brain revealed no acute intracranial bleeding , specifically no evidence of acute infarct. Atrophy and chronic senescent changes noted. Echocardiogram revealed preserved ejection fraction of 70% with mild left ventricular hypertrophy. No evidence of pericardial effusion. No evidence of wall motion abnormality. Right ventricular systolic pressure of 35 consistent with mild pulmonary hypertension. Lipid panel revealed elevated total cholesterol 228, elevated LDL 123 . TSH was minimally elevated with normal free T4 and T3. Per yard jacker, etiology of lightheadedness and dizziness was not clear, however there was no arrhythmia on telemetry. Echocardiogram revealed preserved ejection fraction. Patient may have been dehydrated. Blood pressure was stable with DENISE inhibitor. Pulse oximetry was stable on room air. Blood pressure stabilized and prior to discharge 110/65 . DVT prophylaxis provided. Fall precaution maintained. Patient was counseled on low-fat low-cholesterol diet and recommended to follow- up with her primary care provider to start statin. Patient was at this time reluctant to start new medication. Lightheadedness and dizziness resolved. Patient clinically improved and was stable for discharge home. Patient was stable for discharge home . FINAL DIAGNOSES: Lightheadedness and dizziness, possibly secondary to dehydration - resolved Uncontrolled hypertension , likely due to hypertensive urgency- resolved Acute encephalopathy , possibly due to dehydration and uncontrolled hypertension - resolved Hypercholesterolemia DISCHARGE MEDICATIONS: See Medication Reconciliation list. DISCHARGE INSTRUCTIONS: Patient was discharged home. Follow up with primary care provider in one week. I have been assigned to dictate discharge summary for this account. I was not involved in the patient's management. Cristina Araujo NP Jan 18, 2019 12:07
== END 2019-01-16 15:05 | disposition home or self-care (01) | DRG 305 ==
LOC: EMR 12:05 → 2E 15:46 → EDBEDREQ 17:42 → 2E 18:47
DX: I16.0 Hypertensive urgency (principal); G93.40 Encephalopathy, unspecified; E86.0 Dehydration; E78.00 Pure hypercholesterolemia, unspecified
CPT/HCPCS: 36415; 70450; 70551; 71045; 80053; 80061; 81003; 82550; 82553; 84439; 84443; 84481; 84484; 85007; 85025; 85610; 85730; 93005; 93306; 93880; 94664; 99285